=== PATIENT | female | born 2000 | race Two or more races ===

== ENCOUNTER 2024-03-05 18:09 | Outpatient (REF) | payer OTHER, SELFPAY ==
[2024-03-06 15:01] LABS: Occult Blood Negative
[2024-03-06 15:02] LABS: Internal Control Within Normal Limits
== END 2024-03-05 18:10 | disposition home or self-care (01) ==
LOC: LAB 18:09
PROVIDERS: PCP Nurse Practitioner Family; Visit Provider Nurse Practitioner Family
DX: R19.7 Diarrhea, unspecified (principal)
CPT/HCPCS: 87045; 87046; 87427; 87493; G0328